=== PATIENT | female | born 1980 | race African-American/Black ===

== ENCOUNTER 2016-11-25 18:28 | Emergency (ER) | payer OTHER ==
[~2016-11-25] VITALS: Ht 162.6 cm; Wt 124.3 kg
[2016-11-25 19:15] LABS: HEMATOCRIT 38.3 % (36.0-46.0); MCHC 30.8 G/DL (30.0-36.0); MCV 77.8 FL (83-99); PLATELET COUNT 393 K/uL (156-360); RBC DIS.WIDTH-CV 18.7 % (11.8-14.6); RBC DIS.WIDTH-SD 52.1 % (39-53); RED BLOOD COUNT 4.92 M/uL (3.80-5.20); WHITE BLOOD COUNT 7.1 K/uL (4.1-10.2)
[2016-11-25 19:25] LABS: CHLORIDE 109 mEq/L (99-109); POTASSIUM 3.6 mEq/L (3.7-5.4); SODIUM 143 mEq/L (136-147)
[2016-11-25 19:27] LABS: GLUCOSE 107 mg/dL (70-99)
[2016-11-25 19:28] LABS: ANION GAP 12 MEQ/L (2-14)
[2016-11-25 19:29] LABS: TOTAL BILIRUBIN 0.2 mg/dL (0.0-1.0)
[2016-11-25 19:30] LABS: ALKALINE PHOSPHATASE 163 IU/L (3-129)
[2016-11-25 19:31] LABS: GFR ESTIMATE (CALCULATED) > 59 mL/min/
[2016-11-25 19:32] LABS: UREA NITROGEN (BUN) 9 mg/dL (9-23)
[2016-11-25 19:42] LABS: QUANTITATIVE HCG < 4.0 MIU/ML
[2016-11-25 20:46] LABS: ADD MIUA? YES; BILIRUBIN NEGATIVE; BLOOD LARGE; COLOR YELLOW ((YELLOW)); GLUCOSE (STRIP) NEGATIVE; KETONES NEGATIVE; LEUKOCYTES NEGATIVE; NITRITE NEGATIVE; PROTEIN (STRIP) 100; SPECIFIC GRAVITY 1.028 (1.000-1.030); UROBILINOGEN 0.2 MG/DL (0.2-1.0)
[2016-11-25 20:47] LABS: BACTERIA RARE /HPF; EPITHELIAL CELLS 1+ /HPF; MUCUS TRACE /LPF; RED BLOOD CELLS TNTC /HPF (0-5); UCUL ADDED? YES; WHITE BLOOD CELLS 0-5 /HPF (0-5)
[2016-11-25] MEDS ORDERED: BENTYL10 MG PO (23:01)
[2016-11-25] MEDS ORDERED: ZOFRAN4 MG PO (23:01)
[2016-11-25 23:23] VITALS: BP 129/94
== END 2016-11-25 23:25 | disposition home or self-care (01) ==
LOC: EME 18:28
PROVIDERS: Physician Assistant
DX: R11.2 Nausea with vomiting, unspecified (principal); R10.30 Lower abdominal pain, unspecified; E78.5 Hyperlipidemia, unspecified; F17.200 Nicotine dependence, unspecified, uncomplicated
CPT/HCPCS: 74176; 76856; 80053; 81003; 84702; 85027; 87086; 99281; 99285; J2270; J2550